=== PATIENT | female | born 1980 | race Caucasian/White ===

== ENCOUNTER 2016-04-08 12:11 | Emergency (ER) | payer OTHER ==
[2016-04-08 14:05] VITALS: BP 187/80
[2016-04-08] MEDS ORDERED: Famotidine TAB* 20 MG PO ONE (14:20)
--- NOTE | 2016-04-08 14:26 | UC ---
UC General HPI - HPI Summary HPI Summary: patient has had n/v/d/ for the past three days, was feeling better yesterday. today has nausea again and pain in upper stomach. - History of Current Complaint Chief Complaint: UCAbdominalPain Stated Complaint: NAUSEA, AND DIARRHEA Time Seen by Provider: 04/08/16 14:13 Hx Obtained From: Patient Onset/Duration: Gradual Onset, Lasting Days Timing: Constant Onset Severity: Mild Current Severity: Mild Pain Intensity: 4 Associated Signs & Symptoms: Positive: Nausea Related Hx: Recent Illness - Allergy/Home Medications Allergies/Adverse Reactions: Allergies Allergy/AdvReac Type Severity Reaction Status Date / Time No Known Allergies Allergy Verified 04/08/16 14:05 PMH/Surg Hx/FS Hx/Imm Hx Previously Healthy: Yes Endocrine History Of: Denies: Diabetes, Thyroid Disease Cardiovascular History Of: Denies: Cardiac Disorders, Hypertension, Pacemaker/ICD Respiratory History Of: Reports: Bronchitis - IN THE PAST-BETTER NOW Denies: COPD, Asthma GI/ History Of: Denies: Ulcer Neurological History Of: Reports: Migraine - TAKES MEDICATION PRN Psychological History Of: Reports: Anxiety - IN THE PAST, Depression - IN THE PAST - Surgical History Surgical History: Yes Surgery Procedure, Year, and Place: 2 C-Sections 2006 & 2010. Cyst removed from an ovary 2004. RT SHOULDER 2012 - Family History Known Family History: Positive: Hypertension - Social History Alcohol Use: Rare Substance Use Type: None Smoking Status (MU): Former Smoker Review of Systems Constitutional: Negative Skin: Negative Eyes: Negative ENT: Negative Respiratory: Negative Cardiovascular: Negative Gastrointestinal: Abdominal Pain, Vomiting, Diarrhea Genitourinary: Negative Motor: Negative Neurovascular: Negative Musculoskeletal: Negative Neurological: Negative Psychological: Negative All Other Systems Reviewed And Are Negative: Yes Physical Exam Triage Information Reviewed: Yes Appearance: Well-Nourished, Ill-Appearing, Pain Distress Vital Signs: Initial Vital Signs Temp 99 F 04/08/16 13:58 Resp 20 04/08/16 13:58 BP 187/80 04/08/16 13:58 Pulse Ox 98 04/08/16 13:58 Vital Signs Reviewed: Yes Eye Exam: Normal Eyes: Positive: Conjunctiva Clear ENT Exam: Normal ENT: Positive: Hearing grossly normal, Pharynx normal, TMs normal Dental Exam: Normal Neck exam: Normal Neck: Positive: Supple, Nontender, No Lymphadenopathy Respiratory Exam: Normal Respiratory: Positive: Chest non-tender, Lungs clear, Normal breath sounds Cardiovascular Exam: Normal Cardiovascular: Positive: RRR, No Murmur, Pulses Normal Abdomen Description: Positive: Other: - tender on palpation in epigastric region. no organomegaly, no rebound tenderness, no CVA tenderness, guarding or distention. Bowel Sounds: Positive: Present Musculoskeletal Exam: Normal Musculoskeletal: Positive: Strength Intact, ROM Intact, No Edema Neurological Exam: Normal Neurological: Positive: Alert, Muscle Tone Normal Psychological Exam: Normal Psychological: Positive: Normal Response To Family Skin Exam: Normal Course/Dx - Course Course Of Treatment: History obtained, exam performed, famotoidine given for epigastric tenderness with good results. to rule out acid reflux. currently no diarrhea, tolerating crackers and water without vomiting. UA positive for leuks and blood. medications prescribed. - Differential Dx - Multi-Symptom Provider Diagnoses: UTI. GERD. NAusea Discharge - Discharge Plan Condition: Stable Disposition: HOME Patient Education Materials: Urinary Tract Infection in Women (ED), Gastroesophageal Reflux Disease (ED) Referrals: Rk Franz MD [Primary Care Provider] - Additional Instructions: I have prescribed an antibiotic to treat your UTI. Take the full course fro treatment. Due to your existing GI issues I recommend that you take a good probiotic daily, but at least the next two seeks to restore normal linus to the GI tract. Increase fluid intake and get plenty of rest.
== END 2016-04-08 14:55 | disposition home or self-care (01) ==
LOC: UCEAST 12:11
DX: N39.0 Urinary tract infection, site not specified (principal); K21.9 Gastro-esophageal reflux disease without esophagitis; R11.0 Nausea; Z87.891 Personal history of nicotine dependence
CPT/HCPCS: 81002; 87086; 99212; A9270-GY; G0463

== ENCOUNTER 2016-04-11 15:29 | Emergency (ER) | payer OTHER ==
[2016-04-11] MEDS ORDERED: Ondansetron INJ* 2 MG/ML VIAL IV ONE (18:41)
[2016-04-11] MEDS ORDERED: Al Hydrox/Mg Hydrox/Simet LIQ* 30 ML UDC PO ONE (18:41)
[2016-04-11] MEDS ORDERED: Lidocaine 2% VISCOUS* 15 ML UDC PO ONE (18:41)
[2016-04-11 19:25] LABS: Hematocrit 38 % (35-47); Hemoglobin 12.6 g/dl (12.0-16.0); Mean Corpuscular HGB Conc 33 g/dl (31-36); Mean Corpuscular Hemoglobin 27 pg (27-31); Mean Corpuscular Volume 83 fL (80-97); Mean Platelet Volume 7 um3 (7.4-10.4); Red Blood Count 4.65 10^6/ul (4.0-5.4); Red Cell Distribution Width 14 % (10.5-15); White Blood Count 12.1 10^3/ul (3.5-10.8)
[2016-04-11 19:33] LABS: Urine Bacteria 1+ (Absent); Urine Bilirubin Negative (Negative); Urine Glucose Negative (Negative); Urine Nitrite Negative (Negative)
[2016-04-11 19:37] LABS: Albumin 4.4 g/dL (3.2-5.2); BUN/Creatinine Ratio 14.1 (8-20); Calcium 9.6 mg/dL (8.6-10.3); EGFR African American 135.8 (>60); EGFR Non-African American 105.6 (>60); Globulin 3.2 g/dL (2-4); Potassium 3.9 mmol/L (3.5-5.0); Total Bilirubin 0.4 mg/dL (0.2-1.0); Total Protein 7.6 g/dL (6.4-8.9)
[2016-04-11] MEDS: NS 0.9% 1000 ML* 2,000 ML IV ONE ×2 (19:53→21:05)
[2016-04-11] MEDS ORDERED: Iohexol 300* (CONTRAST) 10 ML SDV IV ONE (20:10)
--- NOTE | 2016-04-11 22:18 | RAD ---
Indication: Fever, abdominal pain. CT of the abdomen and pelvis was performed after oral and IV contrast administration. Coronal and sagittal reconstructed images were obtained. Administered 150.0 ml of OMNIPAQUE 300 mgi/ml. Lung bases demonstrate no pleural fluid, nodules or masses. Heart is of normal size without evidence of pericardial effusion. Liver is normal in size. No focal lesions or intrahepatic ductal dilatation is noted. Area of typical focal fatty infiltration is noted in the anterior medial segment of the left lobe of liver. Common duct is not dilated. The pancreas images no mass or pancreatic ductal dilatation. No adrenal lesions are noted. The kidneys demonstrate symmetric nephrograms without hydronephrosis. No retroperitoneal lymphadenopathy is noted. No dilated loops of bowel are noted. CT of the pelvis demonstrates the colon to be filled with stool. Appendix is visualized and appears to be within normal limits. No dilated loops of bowel are noted. There is diverticulosis of the sigmoid colon without definite evidence of diverticulitis. No adnexal masses are noted. No hernias are noted. Urinary bladder is otherwise unremarkable. No free fluid is identified. IMPRESSION: NO ABNORMAL MASSES OR FLUID COLLECTIONS ARE IDENTIFIED. APPENDIX IS NORMAL. NO ABSCESS IS IDENTIFIED. DIVERTICULOSIS WITHOUT DEFINITE EVIDENCE OF DIVERTICULITIS.
[2016-04-11] MEDS ORDERED: cefTRIAXone(*) 1 GM in NS 0.9% 50 ML* 50 ML IVPB ONE (22:43)
[2016-04-11] MEDS ORDERED: Acetaminophen TAB* 325 MG PO ONE (23:03)
[2016-04-11] MEDS ORDERED: Ondansetron ODT TAB* 4 MG PO ONE (23:03)
--- NOTE | 2016-04-11 23:22 | ED ---
Yaakov Mar Michael, scribed for Ty Webb MD on 04/11/16 at 1836 . Abdominal Pain/Female - HPI Summary HPI Summary: 36 y/o female comes to the ED presenting with constant RUQ abd pain that started 3 days ago. The pt reports that the visiting her PCP and was referred to Dr. Hailey salas they thought it was a problem with her gallbladder. Dr. Hart ordered an US ABD which showed no abnormalities, so she was referred to the ED by Dr. Hart. She states that the pain is a 5 out of 10 on a pain severity scale. The pain is aggravated with palpation and drinking. The pt also c/o nausea and diarrhea and denies fever and chills. - History of Current Complaint Chief Complaint: EDAbdPain Stated Complaint: ABD PAIN, Time Seen by Provider: 04/11/16 18:25 Hx Obtained From: Patient, Medical Records Hx Last Menstrual Period: 03/23/16 Onset/Duration: Gradual Onset, Lasting Days, Still Present Timing: Constant Severity Initially: Moderate Severity Currently: Moderate Pain Intensity: 5 Pain Scale Used: 0-10 Numeric Location: Epigastric Radiates: No Aggravating Factor(s): Other: - palpations and drinking Associated Signs and Symptoms: Positive: Negative - chills, Nausea, Diarrhea, Other: - abd pain. Negative: Fever Allergies/Adverse Reactions: Allergies Allergy/AdvReac Type Severity Reaction Status Date / Time No Known Allergies Allergy Verified 04/08/16 14:05 PMH/Surg Hx/FS Hx/Imm Hx Endocrine/Hematology History: Denies: Hx Diabetes, Hx Thyroid Disease Cardiovascular History: Denies: Hx Hypertension, Hx Pacemaker/ICD Respiratory History: Denies: Hx Asthma, Hx Chronic Obstructive Pulmonary Disease (COPD) GI History: Reports: Hx Gastroesophageal Reflux Disease - MILD HEARTBURN-TAKES TUMS W/ RELIEF Denies: Hx Ulcer History: Reports: Hx Kidney Infection - TWICE IN THE PAST Musculoskeletal History: Reports: Other Musculoskeletal History - CHRONIC LOWER BACK STRAIN Denies: Hx Rheumatoid Arthritis, Hx Osteoporosis Sensory History: Denies: Hx Contacts or Glasses, Hx Hearing Aid Opthamlomology History: Denies: Hx Contacts or Glasses Neurological History: Reports: Hx Migraine - TAKES MEDICATION PRN Psychiatric History: Reports: Hx Anxiety - IN THE PAST, Hx Depression - IN THE PAST Denies: Hx Panic Disorder - Surgical History Surgery Procedure, Year, and Place: 2 C-Sections 2006 & 2010. Cyst removed from an ovary 2004. RT SHOULDER 2013 Hx Anesthesia Reactions: No - Immunization History Date of Tetanus Vaccine: Unknown Infectious Disease History: No Infectious Disease History: Denies: Hx Clostridium Difficile, Hx Hepatitis, Hx Human Immunodeficiency Virus (HIV), Hx of Known/Suspected MRSA, Hx Shingles, Hx Tuberculosis, Hx Known/ Suspected VRE, Hx Known/Suspected VRSA, History Other Infectious Disease, Traveled Outside the [place] in Last 30 Days - Family History Known Family History: Positive: Hypertension - Social History Occupation: Employed Part-time Lives: With Family Alcohol Use: Rare Substance Use Type: Reports: None Smoking Status (MU): Former Smoker Review of Systems Negative: Fever, Chills Negative: Erythema Negative: Sore Throat Negative: Chest Pain Negative: Shortness Of Breath, Cough Positive: Abdominal Pain, Diarrhea, Nausea. Negative: Vomiting Negative: dysuria, hematuria Negative: Myalgia, Edema Negative: Rash Neurological: Negative - dizziness All Other Systems Reviewed And Are Negative: Yes Physical Exam - Summary Physical Exam Summary: Constitutional: Well-developed, Well-nourished, Alert. (-) Distressed Skin: Warm, Dry HENT: Normocephalic; Atraumatic Eyes: Conjunctiva normal Neck: Musculoskeletal ROM normal neck. (-) JVD, (-) Stridor, (-) Tracheal deviation Cardio: Rhythm regular, rate normal, Heart sounds normal; Intact distal pulses; The pedal pulses are 2+ and symmetric. Radial pulses are 2+ and symmetric. (-) Murmur Pulmonary/Chest wall: Effort normal. (-) Respiratory distress, (-) Wheezes, (-) Rales Abd: Epigastric tenderness, (-) Distension, (-) Guarding, (-) Rebound Musculoskeletal: (-) Edema Lymph: (-) Cervical adenopathy Neuro: Alert, Oriented x3 Psych: Mood and affect Normal Triage Information Reviewed: Yes Vital Signs On Initial Exam: Initial Vitals Temp Pulse Resp BP Pulse Ox 98.4 F 84 18 140/76 100 04/11/16 15:35 04/11/16 15:35 04/11/16 15:35 04/11/16 15:35 04/11/16 15:35 Vital Signs Reviewed: Yes Diagnostics - Vital Signs Vital Signs Temp Pulse Resp BP Pulse Ox 04/11/16 15:35 98.4 F 84 18 140/76 100 - Laboratory Result Diagrams: 04/11/16 18:50 04/11/16 18:50 Lab Statement: Any lab studies that have been ordered have been reviewed, and results considered in the medical decision making process. - CT CT ABD/PEL CT Interpretation: Positive (See Comments) - NO ABNORMAL MASSES OR FLUID COLLECTIONS ARE IDENTIFIED. APPENDIX IS NORMAL. NO ABSCESS IS IDENTIFIED. DIVERTICULOSIS WITHOUT DEFINITE EVIDENCE OF DIVERTICULITIS. CT Interpretation Completed By: Radiologist Abdominal Pain Fem Course/Dx - Course Course Of Treatment: 36 y/o female c/o epigastric abd pain. Dr. Hart referred her to the ED after her US was negative. She also c/o nausea and vomiting. She denies fever and chills. Consulted Dr. Franz at 1999. After recheck-pt is feeling improved. Repeated abd exam and she in nontender. Will continue to give her Keflex. Suspect gastritis. - Diagnoses Provider Diagnoses: Epigastric pain, Acute gastroenteritis Discharge - Discharge Plan Condition: Improved Disposition: HOME Prescriptions: Al Hydrox/Mg Hydrox/Simet LIQ* [Maalox Plus*] 30 ml PO Q4H PRN #500 ml PRN Reason: Pain - Abdominal Cephalexin CAP* [Keflex CAP*] 500 mg PO QID #28 cap Ondansetron ODT TAB* [Zofran Odt TAB*] 4 mg PO Q8H PRN #15 tab.odt PRN Reason: Nausea/Vomiting Patient Education Materials: Epigastric Pain (ED) Forms: *Work Release Referrals: Rk Franz MD [Primary Care Provider] - Additional Instructions: You will follow up with Dr. Franz within the next 2-3 days. If symptoms worsen please return to the ED immediately. The documentation as recorded by the Yaakov huber Michael accurately reflects the service I personally performed and the decisions made by me, Ty Webb MD.
[2016-04-11 23:58] VITALS: BP 120/75
== END 2016-04-11 23:57 | disposition home or self-care (01) ==
LOC: ED 15:29
DX: K52.9 Noninfective gastroenteritis and colitis, unspecified (principal); R10.11 Right upper quadrant pain; R50.9 Fever, unspecified
CPT/HCPCS: 36415; 74177; 80053; 81003; 81015; 83690; 85025; 87086; 96360; 96361; 99282; A9270-GY; J0696; J2405; Q9967

== ENCOUNTER → 2016-05-29 09:03 | Day surgery (SDC) | payer OTHER ==
[~2016-05-29 09:03] MED LIST: Buffered Lidocaine 1% SYR 3ML* 3 ML/SYR SYRINGE INTRADERM ONE; Bupivacaine 0.25% EPI 200,000* 30 ML SDV ONE; Glycopyrrolate IV* 0.2 MG/ML 1 ML VIAL ONE; Ketorolac INJ* 30 MG/ML 1 ML VIAL ONE; Lidocaine 2% PF * 5 ML VIAL ONE; Neostigmine Methylsulfate* 2 MG/2 ML SYRINGE ONE; Ondansetron INJ* 2 MG/ML VIAL IV PRN; Ondansetron INJ* 2 MG/ML VIAL ONE; Propofol* 10 MG/ML 20 ML BTL IV PUSH ONE; Rocuronium* 10 MG/ML VIAL ONE; Sodium Citrate/Citric Acid* 15 ML UDC ONE; Sodium Citrate/Citric Acid* 15 ML UDC PO ONE; ceFAZolin 2 GM PREMIX (*) 2 GM/50 ML BAG IVPB ONE; fentaNYL* 50 MCG/ML 2 ML VIAL (100 MCG VIAL) ONE; oxyCODONE/Acetamin 5/325 MG* TAB ONE; oxyCODONE/Acetamin 5/325 MG* TAB PO ONE
[2016-05-29 09:28] LABS: Manual Entry Verification DOM0004; UR Preg Internal Control QC Line Present
--- NOTE | 2016-05-29 14:16 | SURGPN ---
Brief Operative Note - Surgery Procedures: Procedures Pre-OP Diagnoses: biliary colic Post-op Diagnosis: same Procedure: Laparoscopic cholecystectomy Surgeon: Hailey Asst: Marly Pedroza Anethesia: JOHN Multani EBL: minimal IVF: 800cc Specimen: gallbladder Drains: none
[2016-05-29] MEDS: fentaNYL* 50 MCG/ML 2 ML VIAL (100 MCG VIAL) IV PRN ×2 (14:27→14:54)
[2016-05-29 15:55] VITALS: BP 111/74
--- NOTE | 2016-06-12 01:17 | OP ---
DATE OF OPERATION: 05/29/16 [facility] DATE OF : 82 SURGEON: Brendan Hart MD CLIMATE CHANGE RISK ASSESSOR: LOC James student. ANESTHESIOLOGIST: Dr. Multani. ANESTHESIA: General. PRE-OP DIAGNOSIS: Biliary colic. POST-OP DIAGNOSIS: Biliary colic. OPERATIVE PROCEDURE: Laparoscopic cholecystectomy. ESTIMATED BLOOD LOSS: Minimal. IV FLUIDS: 800 cc. SPECIMEN: Gallbladder. DRAINS: None. DESCRIPTION OF PROCEDURE: The patient was identified in the preoperative area, marked, brought to the operating room, placed on the operating table in supine position. Preoperative antibiotics were given. Sequential devices were placed on bilateral lower extremities. General anesthesia was induced. The patient's abdomen was prepped and draped in a standard surgical fashion and a time-out was performed. The folds of the umbilicus were elevated anteriorly and a Veress needle was inserted into the abdominal cavity, which was then allowed to insufflate to a pressure of 15 mmHg. Next a periumbilical incision was made and a 5 mm trocar was inserted through this. Laparoscope was inserted through this area and there was no evidence of injury from trocar insertion or from the Veress needle , which was then removed. Additional trocars were then placed in the following positions, 12 mm xiphoid area and two 5 mm along the right costal margin. Table was repositioned and the fundus of the gallbladder was identified, it was elevated over the liver. There were no significant adhesions. The infundibulum was then grasped and retracted towards the right lower quadrant, exposing Calot' s triangle. Dissection was then carried out, taking the peritoneum off the medial aspect of the gallbladder and also off the lateral aspect. Cystic duct and cystic artery were isolated. The cystic duct triply clipped and ligated, the cystic artery doubly clipped and ligated, and the gallbladder was removed from the liver bed. This was all done in a typical standard fashion. The gallbladder was not entered and was placed in the endoscopic retrieval bag and brought out through the subxiphoid port site. Review of the cystic duct stump and cystic artery stump in a standard fashion showed that there was no evidence of bleeding or bile. Hemostasis was excellent. The patient was repositioned back to neutral. Abdomen was allowed to collapse. Trocar was removed under direct vision and all 4 skin incisions were reapproximated with 4-0 Monocryl subcuticular sutures followed by Steri-Strips and sterile dressing. CC: [facility]; Dr. Rk Franz* [id number]/[facility] #: [id number] REDD
== END | disposition home or self-care (01) ==
LOC: OR 09:03
PROVIDERS: ATTEND Surgery
DX: K81.1 Chronic cholecystitis (principal); Z68.41 Body mass index [BMI] 40.0-44.9, adult; Z87.891 Personal history of nicotine dependence
CPT/HCPCS: 81025; 88304; A9270-GY; J0690; J1885; J2405; J2704; J3010

== ENCOUNTER 2016-10-12 10:01 | Emergency (ER) | payer OTHER ==
[2016-10-12] MEDS ORDERED: NS 0.9% 1000 ML* 1,000 ML IV ONE (10:11)
[2016-10-12] MEDS ORDERED: Morphine INJ* 2 MG/ML 1 ML SYRINGE IV ONE (10:11)
[2016-10-12] MEDS ORDERED: Ondansetron INJ* 2 MG/ML VIAL IV ONE (10:11)
[2016-10-12 10:17] VITALS: BP 98/64
--- NOTE | 2016-10-12 10:44 | UC ---
Ximena Mar Edward, scribed for Sade Hernandez MD on 10/12/16 at 1010 . Cardiac HPI - HPI Summary HPI Summary: 36 y/o female presents to [facility] c/o intermittent CP starting this morning characterized as a cramping, aching pain. The patient had a near-syncopal episode due to the pain at triage. PT reports feeling sob and having cp. Pt states pain comes in waves, but does not resolve. Pain is sharp and stabbing in nature. No fevers, chills. pain started this morning.PT thought was related to acid so took mild without effect. Pt reports nausea, no vomiting. PT states had similar episode approx 2 months ago. Saw pcp - labs were "off." PT states had high wbc so was sent to Dr. Hankins - no diagnosis given and pt has not followed up. Pt states was feeling well until this morning. Denies a cough and diarrhea. LNMP 2 days ago. PMHx herniated discs in lower spine, denies other PMHx. NKDA. SHx gall bladder removal. Past medications reviewed on visit. - History of Current Complaint Stated Complaint: BREATHING ISSUE Hx Obtained From: Patient Onset/Duration: Sudden Onset, Lasting Hours, Still Present Timing: Intermittent Episodes Lasting: Chest Pain Location: Discrete at: - epigastric Character: Dull/Aching - Cramping/aching Associated Signs & Symptoms: Positive: Chest Pain, Anxiety, SOB, Nausea/ Vomiting - Nausea - Allergy/Home Medications Allergies/Adverse Reactions: Allergies Allergy/AdvReac Type Severity Reaction Status Date / Time Adhesive Tape Allergy Rash Verified 05/29/16 09:49 Home Medications: Home Medications Multiple Vitamin [Multi Vitamin] 1 tab PO DAILY 10/12/16 [History Confirmed ] PMH/Surg Hx/FS Hx/Imm Hx - Additional Past Medical History Additional PMH: Positive: herniated disc in lower spine Previously Healthy: No - Surgical History Surgical History: Yes Surgery Procedure, Year, and Place: 2 [place] 2006 & [place] [facility] [place]yst removed from an ovary [place]. 2013 [place] [facility] [place] - Family History Known Family History: Positive: Hypertension - Social History Lives: With Family Alcohol Use: Rare Alcohol Amount: 1-2 [place] Substance Use Type: None Smoking Status (MU): Former Smoker Type: Cigarettes Amount Used/How Often: 1PPD FEW YEARS Length of Time of Smoking/Using Tobacco: 10 YRS Have You Smoked in the Last Year: Yes When Did the Patient Quit Smoking/Using Tobacco: 2010 THEN STARTED AGAIN 2015, NONE SINCE 03/2016 Household Exposure Type: Cigars Review of Systems Constitutional: Negative - Unsure if there were fever/chills Skin: Negative Eyes: Negative ENT: Negative Respiratory: Shortness Of Breath Cardiovascular: Chest Pain Gastrointestinal: Nausea, Other - Belching Genitourinary: Negative Motor: Negative Neurovascular: Negative Musculoskeletal: Negative Neurological: Negative Psychological: Anxious All Other Systems Reviewed And Are Negative: Yes Physical Exam Triage Information Reviewed: Yes Appearance: Pain Distress - Pt hyperventiating, colicky pain, holding epigastrum Vital Signs: Initial Vital Signs Temp 97.1 F 10/12/16 10:06 Pulse 85 10/12/16 10:06 Resp 20 10/12/16 10:06 BP 98/64 10/12/16 10:06 Pulse Ox 100 10/12/16 10:06 Vital Signs Reviewed: Yes Eye Exam: Normal Eyes: Positive: Conjunctiva Clear ENT Exam: Normal Neck exam: Normal Neck: Positive: Supple, Nontender, No Lymphadenopathy Respiratory Exam: Normal Respiratory: Positive: Chest non-tender, Lungs clear, Normal breath sounds Cardiovascular Exam: Normal Cardiovascular: Positive: RRR, No Murmur, Pulses Normal, Brisk Capillary Refill Abdomen Description: Positive: No Organomegaly, Soft, Bruit, Other: - + epigastric pain - no guarding, no rebound soft + BS. Negative: Nontender, CVA Tenderness (R), CVA Tenderness (L) Bowel Sounds: Positive: Present Musculoskeletal Exam: Normal Neurological Exam: Normal Psychological: Positive: Other: - anxious, hyperventilating - improved through duration of exam Skin Exam: Normal Diagnostics - EKG Cardiac Rate: NL - 10:10 Cardiac Rhythm: Sinus: Normal - @ 84 bpm. Q waves in III and aVF. No acute ST or T wave changes. - Assessment/Plan Course Of Treatment: 36 y/o female presents to [facility] c/o intermittent CP starting this morning characterized as a cramping, aching stabbing epigastric pain. Patient had a near syncopal episode due to pain. Patient states no relevant PMHx. EKG @ 10:10 shows NSR @ 84 bpm with Q waves in III and aVF, and no acute ST or T wave changes. Differential includes gastritis, biliary stone, pancreatitis. Pt with poor pain control. Recommend ED For futher eval - pt comfortable and in agreement with plan. transfer by EMS - Clinical Impression Provider Diagnoses: epigastric pain. near syncope Discharge - Discharge Plan Condition: Stable Disposition: TRANS HIGHER LVL OF CARE FAC Referrals: Rk Franz MD [Primary Care Provider] - The documentation as recorded by the Ximena huber Edward accurately reflects the service I personally performed and the decisions made by David sosa Laura, MD.
== END 2016-10-12 10:35 | disposition short-term general hospital (02) ==
LOC: UCEAST 10:01
DX: R10.13 Epigastric pain (principal); R55 Syncope and collapse; Z87.891 Personal history of nicotine dependence
CPT/HCPCS: 93005; 99213; G0463

== ENCOUNTER 2016-10-12 10:56 | Emergency (ER) | payer OTHER ==
[2016-10-12] MEDS ORDERED: HYDROmorphone* 1 MG/ML 1 ML SYR IV ONE (13:23)
[2016-10-12] MEDS ORDERED: Ondansetron INJ* 2 MG/ML VIAL IV ONE (13:23)
[2016-10-12] MEDS ORDERED: NS 0.9% 1000 ML* 1,000 ML IV ONE (13:23)
--- NOTE | 2016-10-12 14:14 | RAD ---
Indication: Right upper quadrant pain. Real-time sonography of the right upper quadrant was performed. The liver is normal in size. No focal lesions or intrahepatic ductal dilatation is noted. The common duct measures 5 mm. Patient status post cholecystectomy. The right kidney measures 12.8 x 6.1 x 4.3 cm. No hydronephrosis is noted. The visualized pancreas is unremarkable. IMPRESSION: Patient status post cholecystectomy. No evidence of biliary duct dilatation is noted.
[2016-10-12 14:36] LABS: Hematocrit 43 % (35-47); Hemoglobin 14.1 g/dl (12.0-16.0); Mean Corpuscular HGB Conc 33 g/dl (31-36); Mean Corpuscular Hemoglobin 28 pg (27-31); Mean Corpuscular Volume 86 fL (80-97); Mean Platelet Volume 7 um3 (7.4-10.4); Red Blood Count 5.02 10^6/ul (4.0-5.4); Red Cell Distribution Width 14 % (10.5-15); White Blood Count 16.8 10^3/ul (3.5-10.8)
[2016-10-12 14:58] LABS: Albumin 4.3 g/dL (3.2-5.2); Calcium 9.8 mg/dL (8.6-10.3); EGFR African American 138.3 (>60); EGFR Non-African American 107.5 (>60); Globulin 3.2 g/dL (2-4); Potassium 4.1 mmol/L (3.5-5.0); Total Bilirubin 0.8 mg/dL (0.2-1.0); Total Protein 7.5 g/dL (6.4-8.9)
[2016-10-12 15:35] LABS: C Reactive Protein 16.53 mg/L (< 5.00)
[2016-10-12] MEDS ORDERED: Lidocaine 2% VISCOUS* 15 ML UDC PO ONE (15:38)
[2016-10-12] MEDS ORDERED: Al Hydrox/Mg Hydrox/Simet LIQ* 30 ML UDC PO ONE (15:38)
[2016-10-12 16:06] LABS: Urine Bilirubin Negative (Negative); Urine Glucose Negative (Negative); Urine Nitrite Negative (Negative)
[2016-10-12 16:09] LABS: Urine Bacteria Absent (Absent)
[2016-10-12] MEDS ORDERED: LORazepam TAB(*) 1 MG PO ONE (17:28)
[2016-10-12 17:42] VITALS: BP 110/64
--- NOTE | 2016-10-13 20:02 | ED ---
Yeny Mar Alok, scribed for Celestino Centeno MD on 10/12/16 at 1318 . Abdominal Pain/Female - HPI Summary HPI Summary: 36F presents to the ED for abd pain at the epigastric area beginning today. Pt states her abd pain waxes and wanes in intensity and is described as aching with stabbing at times. Pt states she has urinated less than usual today though her last BM yesterday was normal. Pt also notes nausea as well as chills and diaphoresis. Pt denies vomiting. PMHx includes cholecystectomy and states her pain feels similar to abd pain feels before her gallbladder was removed though in a different location. Pt was last seen by her PCP a few weeks ago and reported elevated WBC and low hemoglobin levels. Her LMP ended 2 days ago and pt takes BCP. - History of Current Complaint Chief Complaint: EDAbdPain Stated Complaint: ABD PAIN Time Seen by Provider: 10/12/16 13:10 Hx Obtained From: Patient Hx Last Menstrual Period: ended 10/10/16 Onset/Duration: Lasting Hours, Still Present Timing: Constant Severity Initially: Moderate Severity Currently: Moderate Pain Intensity: 6 Pain Scale Used: 0-10 Numeric Location: Epigastric Character: Sharp, Other: - aching Aggravating Factor(s): Nothing Alleviating Factor(s): Nothing Associated Signs and Symptoms: Positive: Diaphoresis, Nausea, Other: - chills. Negative: Vomiting Allergies/Adverse Reactions: Allergies Allergy/AdvReac Type Severity Reaction Status Date / Time Adhesive Tape Allergy Rash Verified 10/12/16 12:24 PMH/Surg Hx/FS Hx/Imm Hx Endocrine/Hematology History: Denies: Hx Diabetes, Hx Thyroid Disease Cardiovascular History: Denies: Hx Hypertension, Hx Pacemaker/ICD Respiratory History: Reports: Hx Asthma - IN 20s WAS SMOKER, NO EPISODES SINCE STOPPED SMOKING Denies: Hx Chronic Obstructive Pulmonary Disease (COPD) GI History: Reports: Hx Gastroesophageal Reflux Disease - MILD HEARTBURN-TAKES TUMS W/ RELIEF Denies: Hx Ulcer History: Reports: Hx Kidney Infection - TWICE IN THE PAST, NONE IN RECENT YEARS Denies: Hx Renal Disease Musculoskeletal History: Reports: Other Musculoskeletal History - CHRONIC LOWER BACK STRAIN Denies: Hx Rheumatoid Arthritis, Hx Osteoporosis Sensory History: Denies: Hx Contacts or Glasses, Hx Hearing Aid Opthamlomology History: Denies: Hx Contacts or Glasses Neurological History: Reports: Hx Migraine - TAKES MEDICATION PRN, NONE IN POAST FEW MONTHS Psychiatric History: Reports: Hx Anxiety - IN THE PAST, Hx Depression - IN THE PAST, Hx Panic Disorder - ANXIOUS WILL BE OK FOR MRI - Surgical History Surgery Procedure, Year, and Place: 2 C-Sections 2006 & 2010 [facility] [place]. 2005 Cyst removed from an ovary [place]. 2013 RT SHOULDER [facility] [place] Hx Anesthesia Reactions: No - Immunization History Date of Tetanus Vaccine: Unknown Infectious Disease History: Yes Infectious Disease History: Denies: Hx Clostridium Difficile, Hx Hepatitis, Hx Human Immunodeficiency Virus (HIV), Hx of Known/Suspected MRSA, Hx Shingles, Hx Tuberculosis, Hx Known/ Suspected VRE, Hx Known/Suspected VRSA, History Other Infectious Disease, Traveled Outside the [place] in Last 30 Days - Family History Known Family History: Positive: Hypertension - Social History Occupation: Employed Part-time Lives: With Family Alcohol Use: Occasionally Alcohol Amount: 1-2 [place]IN[place]OLIDA[place] Substance Use Type: Reports: None Smoking Status (MU): Light Every Day Tobacco Smoker Type: Cigarettes Amount Used/How Often: 1PPD FEW YEARS Length of Time of Smoking/Using Tobacco: 10 YRS Have You Smoked in the Last Year: Yes Review of Systems Positive: Chills, Skin Diaphoresis. Negative: Fever Positive: Abdominal Pain, Nausea. Negative: Vomiting All Other Systems Reviewed And Are Negative: Yes Physical Exam Triage Information Reviewed: Yes Vital Signs On Initial Exam: Initial Vitals Temp Pulse Resp BP Pulse Ox 97.8 F 94 18 118/54 97 10/12/16 10:57 10/12/16 10:57 10/12/16 10:57 10/12/16 10:57 10/12/16 10:57 Vital Signs Reviewed: Yes Appearance: Positive: Well-Appearing, No Pain Distress, Obese Skin: Positive: Skin Color Reflects Adequate Perfusion, Diaphoretic Head/Face: Positive: Normal Head/Face Inspection Eyes: Positive: Normal ENT: Positive: Normal ENT inspection Neck: Positive: Supple, Nontender Respiratory/Lung Sounds: Positive: Clear to Auscultation, Breath Sounds Present Cardiovascular: Positive: RRR Abdomen Description: Positive: Soft, Other: - Epigastic and right upper quadrant tenderness Bowel Sounds: Positive: Present Musculoskeletal: Positive: Normal Neurological: Positive: Normal Psychiatric: Positive: Normal, Affect/Mood Appropriate - [place] Coma Scale Coma Scale Total: 15 Diagnostics - Vital Signs Vital Signs Temp Pulse Resp BP Pulse Ox 10/12/16 13:00 80 15 101/48 96 10/12/16 12:30 107/58 10/12/16 12:08 89 15 107/54 97 10/12/16 12:02 77 24 96 10/12/16 12:00 77 21 96 10/12/16 11:30 74 18 96/46 97 10/12/16 11:05 91 22 99 10/12/16 10:57 97.8 F 94 18 118/54 97 - Laboratory Lab Results: Lab Results 10/12/16 10/12/16 10/12/16 Range/Units 14:25 14:25 14:25 WBC 16.8 H (3.5-10.8) 10^3/ul RBC 5.02 (4.0-5.4) 10^6/ul Hgb 14.1 (12.0-16.0) g/dl Hct 43 (35-47) % MCV 86 (80-97) fL MCH 28 (27-31) pg MCHC 33 (31-36) g/dl RDW 14 (10.5-15) % Plt Count 340 (150-450) 10^3/ul MPV 7 L (7.4-10.4) um3 Neut % (Auto) 91.9 H (38-83) % Lymph % (Auto) 3.3 L (25-47) % [place] % (Auto) 4.1 (1-9) % Eos % (Auto) 0.3 (0-6) % Baso % (Auto) 0.4 (0-2) % Absolute Neuts (auto) 15.4 H (1.5-7.7) 10^3/ul Absolute Lymphs (auto) 0.5 L (1.0-4.8) 10^3/ul Absolute Monos (auto) 0.7 (0-0.8) 10^3/ul Absolute Eos (auto) 0 (0-0.6) 10^3/ul Absolute Basos (auto) 0.1 (0-0.2) 10^3/ul Absolute Nucleated RBC 0 10^3/ul Nucleated RBC % 0 D-Dimer, Quantitative (Less Than 230) ng/mL Sodium 138 (133-145) mmol/L Potassium 4.1 (3.5-5.0) mmol/L Chloride 107 (101-111) mmol/L Carbon Dioxide 24 (22-32) mmol/L Anion Gap 7 (2-11) mmol/L BUN 12 (6-24) mg/dL Creatinine 0.63 (0.51-0.95) mg/dL Est GFR ( Amer) 138.3 (>60) Est GFR (Non-Af Amer) 107.5 (>60) BUN/Creatinine Ratio 19.0 (8-20) Glucose 102 H (70-100) mg/dL Lactic Acid 1.0 (0.5-2.0) mmol/L Calcium 9.8 (8.6-10.3) mg/dL Total Bilirubin 0.80 (0.2-1.0) mg/dL AST 31 (13-39) U/L ALT 34 (7-52) U/L Alkaline Phosphatase 54 (34-104) U/L C-Reactive Protein 16.53 H (< 5.00) mg/L Total Protein 7.5 (6.4-8.9) g/dL Albumin 4.3 (3.2-5.2) g/dL Globulin 3.2 (2-4) g/dL Albumin/Globulin Ratio 1.3 (1-3) Lipase 18 (11.0-82.0) U/L Beta HCG, Quant 0.72 mIU/mL Urine Color Urine Appearance Urine pH (5-9) Ur Specific [place] (1.010-1.030) Urine Protein (Negative) Urine Ketones (Negative) Urine Blood (Negative) Urine Nitrate (Negative) Urine Bilirubin (Negative) Urine Urobilinogen (Negative) Ur Leukocyte Esterase (Negative) Urine WBC (Auto) (Absent) Urine RBC (Auto) (Absent) Ur Squamous Epith Cells (Absent) Urine Bacteria (Absent) Hyaline Casts (Absent) Urine Glucose (Negative) 10/12/16 10/12/16 Range/Units 14:25 15:55 WBC (3.5-10.8) 10^3/ul RBC (4.0-5.4) 10^6/ul Hgb (12.0-16.0) g/dl Hct (35-47) % MCV (80-97) fL MCH (27-31) pg MCHC (31-36) g/dl RDW (10.5-15) % Plt Count (150-450) 10^3/ul MPV (7.4-10.4) um3 Neut % (Auto) (38-83) % Lymph % (Auto) (25-47) % [place] % (Auto) (1-9) % Eos % (Auto) (0-6) % Baso % (Auto) (0-2) % Absolute Neuts (auto) (1.5-7.7) 10^3/ul Absolute Lymphs (auto) (1.0-4.8) 10^3/ul Absolute Monos (auto) (0-0.8) 10^3/ul Absolute Eos (auto) (0-0.6) 10^3/ul Absolute Basos (auto) (0-0.2) 10^3/ul Absolute Nucleated RBC 10^3/ul Nucleated RBC % D-Dimer, Quantitative < 200 (Less Than 230) ng/mL Sodium (133-145) mmol/L Potassium (3.5-5.0) mmol/L Chloride (101-111) mmol/L Carbon Dioxide (22-32) mmol/L Anion Gap (2-11) mmol/L BUN (6-24) mg/dL Creatinine (0.51-0.95) mg/dL Est GFR ( Amer) (>60) Est GFR (Non-Af Amer) (>60) BUN/Creatinine Ratio (8-20) Glucose (70-100) mg/dL Lactic Acid (0.5-2.0) mmol/L Calcium (8.6-10.3) mg/dL Total Bilirubin (0.2-1.0) mg/dL AST (13-39) U/L ALT (7-52) U/L Alkaline Phosphatase (34-104) U/L C-Reactive Protein (< 5.00) mg/L Total Protein (6.4-8.9) g/dL Albumin (3.2-5.2) g/dL Globulin (2-4) g/dL Albumin/Globulin Ratio (1-3) Lipase (11.0-82.0) U/L Beta HCG, Quant mIU/mL Urine Color Yellow Urine Appearance Clear Urine pH 5.0 (5-9) Ur Specific [place] 1.015 (1.010-1.030) Urine Protein 1+(30 mg/dl) H (Negative) Urine Ketones Negative (Negative) Urine Blood 1+ H (Negative) Urine Nitrate Negative (Negative) Urine Bilirubin Negative (Negative) Urine Urobilinogen Negative (Negative) Ur Leukocyte Esterase 2+ H (Negative) Urine WBC (Auto) 2+(11-20/hpf) H (Absent) Urine RBC (Auto) 1+(3-5/hpf) H (Absent) Ur Squamous Epith Cells Present H (Absent) Urine Bacteria Absent (Absent) Hyaline Casts Present H (Absent) Urine Glucose Negative (Negative) Result Diagrams: 10/12/16 14:25 10/12/16 14:25 Lab Statement: Any lab studies that have been ordered have been reviewed, and results considered in the medical decision making process. - Additional Comments Diagnostic Additional Comments: Abd US - IMPRESSION: Patient status post cholecystectomy. No evidence of biliary duct dilatation is noted. Abdominal Pain Fem Course/Dx - Course Course Of Treatment: Ms. Watson has been having problems with abdominal pain intermittently for months but she had quite a bit more pain today with constant underlying pain and waves of sharper pain. Her W/U here was negative and I don' t think anything dangerous is happeniing. She will need F/U to get to the bottom of this. - Diagnoses Provider Diagnoses: Abdominal pain Discharge - Discharge Plan Condition: Stable Disposition: HOME Patient Education Materials: Epigastric Pain (ED) Referrals: Rk Franz MD [Primary Care Provider] - 2 Days Additional Instructions: Please follow up with Dr. Franz on Friday The documentation as recorded by the Yeny huber Alok accurately reflects the service I personally performed and the decisions made by me, Celestino Centeno MD.
== END 2016-10-12 17:35 | disposition home or self-care (01) ==
LOC: ED 10:56
DX: R11.2 Nausea with vomiting, unspecified (principal); F17.210 Nicotine dependence, cigarettes, uncomplicated
CPT/HCPCS: 36415; 76705; 80053; 81003; 81015; 83605; 83690; 84702; 85025; 85379; 86140; 87086; 96374; 96375; 99283; A9270-GY; J1170; J2405

== ENCOUNTER 2023-03-03 10:08 | Inpatient (IN) ==
[2023-03-03 11:14] LABS: ABS Eosinophils 0.1 10^3/uL (0.0-0.5); ABS Lymphocytes 2.3 10^3/uL (1.0-4.8); ABS Monocytes 0.7 10^3/uL (0.0-0.9); ABS Neutrophils 7.2 10^3/uL (1.5-7.6); ABS Nucleated RBC 0.01 10^3/ul; Eosinophil % 1.2 %; Hematocrit 35.9 % (35-45); Hemoglobin 12.2 g/dL (11.5-14.3); Lymphocyte % 22.1 %; Mean Corpuscular Hemoglobin 28.8 pg (27-33); Mean Corpuscular Hgb Conc 34.1 g/dL (31-36); Mean Corpuscular Volume 84.5 fL (80-97); Mean Platelet Volume 6.4 fL (7.5-11.2); Nucleated Red Blood Cells % 0.1 %/100WBC (0.0-0.8); Platelet Count 437 10^3/uL (150-450); Red Blood Count 4.25 10^6/uL (3.63-4.92); White Blood Count 10.4 10^3/uL (3.8-11.8)
[2023-03-03 11:18] LABS: Urine Appearance Cloudy; Urine Bilirubin Negative (Negative); Urine Blood Negative (Negative); Urine Color Amber; Urine Glucose Negative (Negative); Urine Ketones Trace (Negative); Urine Nitrite Negative (Negative); Urine Protein 1+(30 mg/dL) (Negative); Urine Specific Gravity 1.024 (1.002-1.030); Urine Urobilinogen Negative (Negative)
[2023-03-03 11:31] LABS: Urine Bacteria Absent (Absent); Urine Red Blood Cell 3+(>10/hpf) (Absent); Urine Squamous Epithelial Cell Present (Absent); Urine White Blood Cell Trace(0-5/hpf) (Absent)
[2023-03-03 11:42] LABS: ALT 17 U/L (7-52); AST 16 U/L (13-39); Albumin 4.3 g/dL (3.2-5.2); Albumin/Globulin Ratio 1.4 (1-3); Alkaline Phosphatase 66 U/L (35-149); Anion Gap 12 mmol/L (2-16); Blood Urea Nitrogen 10 mg/dL (6-24); CO2 Carbon Dioxide 24 mmol/L (22-32); Calcium 9.4 mg/dL (8.6-10.3); Chloride 105 mmol/L (101-111); Creatinine, Serum 0.65 mg/dL (0.51-0.95); Globulin 3.1 g/dL (2-4); Glucose 92 mg/dL (70-100); Potassium 3.9 mmol/L (3.5-5.0); Sodium 141 mmol/L (135-145); Total Bilirubin 0.3 mg/dL (0.2-1.0); Total Protein 7.4 g/dL (6.4-8.9); eGFR CKD-EPI 112.7 (>60)
[2023-03-03 11:46] LABS: HCG Pregnancy < 0.60 mIU/mL
[2023-03-03 11:53] LABS: Acetaminophen < 15 mcg/mL; Alcohol, S < 13 mg/dL (<13); Salicylate < 2.50 mg/dL (<30)
[2023-03-03 11:58] LABS: Urine Benzodiazepine Screen None Detected (None Detect); Urine Cannabinoids Screen None Detected (None Detect); Urine Opiates Screen None Detected (None Detect)
[2023-03-03 12:05] LABS: TSH Ultra Thyroid Stim Horm 2.75 mcIU/mL (0.34-5.60)
[2023-03-03] MEDS ORDERED: Al Hydrox/Mg Hydrox/Simet LIQ 30 ML UDC PO PRN (13:21)
[2023-03-04] MEDS ORDERED: Cholecalciferol (VIT D3) 1,000 unit TAB PO SCH (09:00)
[2023-03-04] MEDS ORDERED: Influenza vaccine *QUAD* *2023-24* 0.5 ML SYRINGE IM ONE (09:00)
[2023-03-04] MEDS: Venlafaxine XR 75 mg PO SCH (09:13)
[2023-03-04] MEDS: DESOGESTREL PO SCH (12:31)
[2023-03-04] MEDS: ETHINYL ESTRADIOL PO SCH (12:31)
[2023-03-04] MEDS: [UNRECOGNIZED DRUG - OTHER] PO SCH (12:31)
[2023-03-05] MEDS: Venlafaxine XR 75 mg PO SCH (08:52)
[2023-03-05] MEDS: ETHINYL ESTRADIOL PO SCH (09:07)
[2023-03-05] MEDS: DESOGESTREL PO SCH (09:07)
[2023-03-05] MEDS: [UNRECOGNIZED DRUG - OTHER] PO SCH (09:07)
[2023-03-06] MEDS: Venlafaxine XR 75 mg PO SCH (08:14)
[2023-03-06] MEDS: [UNRECOGNIZED DRUG - OTHER] PO SCH (08:16)
[2023-03-06] MEDS: ETHINYL ESTRADIOL PO SCH (08:16)
[2023-03-06] MEDS: DESOGESTREL PO SCH (08:16)
[2023-03-06 11:34] VITALS: BP 145/77
== END 2023-03-06 17:30 | disposition home or self-care (01) | DRG 751 ==
LOC: ED 10:08 → EDHOLD 13:21 → BSU 14:59
PROVIDERS: ADMIT Psychiatry & Neurology Psychiatry; ATTEND Psychiatry & Neurology Psychiatry